=== PATIENT | female | born 1995 | race Caucasian/White ===

== ENCOUNTER 2016-04-19 08:37 | Emergency (ER) | payer BC ==
[2016-04-19 08:53] VITALS: BP 116/20
--- NOTE | 2016-04-19 09:11 | UC ---
Throat Pain/Nasal Boy HPI - HPI Summary HPI Summary: NASAL CONGESTION / COUGH X 7 DAYS + SORE THROAT , FEVER, CHILLS - History of Current Complaint Chief Complaint: UCRespiratory Stated Complaint: THROAT,COUGH,FEVER Time Seen by Provider: 04/19/16 08:50 Hx Obtained From: Patient Hx Last Menstrual Period: 04/01/16 Onset/Duration: Gradual Onset, Lasting Days - 7, Still Present Severity: Moderate Cough: Nonproductive Associated Signs & Symptoms: Positive: Nasal Discharge, Fever. Negative: Sinus Discomfort, Rash - Allergies/Home Medications Allergies/Adverse Reactions: Allergies Allergy/AdvReac Type Severity Reaction Status Date / Time Sulfa Antibiotics Allergy Hives Verified 04/19/16 08:47 Home Medications: Home Medications NK [No Home Medications Reported] 04/19/16 [History Confirmed 04/19/16] PMH/Surg Hx/FS Hx/Imm Hx Previously Healthy: Yes - Surgical History Surgical History: None - Family History Known Family History: Negative: Diabetes - Social History Alcohol Use: None Substance Use Type: None Smoking Status (MU): Never Smoked Tobacco Review of Systems Constitutional: Fever, Chills Skin: Negative Eyes: Negative ENT: Sore Throat, Nasal Discharge Respiratory: Cough Cardiovascular: Negative Gastrointestinal: Negative Genitourinary: Negative All Other Systems Reviewed And Are Negative: Yes Physical Exam Triage Information Reviewed: Yes Appearance: Well-Appearing, No Pain Distress, Well-Nourished Vital Signs: Initial Vital Signs Temp 98.5 F 04/19/16 08:48 Pulse 90 04/19/16 08:48 Resp 16 04/19/16 08:48 BP 116/20 04/19/16 08:48 Pulse Ox 98 04/19/16 08:48 Vital Signs Reviewed: Yes Eye Exam: Normal Eyes: Positive: Conjunctiva Clear ENT: Positive: Normal ENT inspection, Hearing grossly normal, Pharyngeal erythema, Nasal congestion, Nasal drainage Neck: Positive: Supple, Nontender, No Lymphadenopathy Respiratory: Positive: Chest non-tender, Lungs clear, Normal breath sounds Cardiovascular: Positive: RRR, No Murmur, Pulses Normal Abdominal Exam: Normal Skin Exam: Normal Throat Pain/Nasal Course/Dx - Differential Dx/Diagnosis Provider Diagnoses: influenza Discharge - Discharge Plan Condition: Stable Disposition: HOME Patient Education Materials: Influenza (ED) Referrals: Non Staff,Doctor [Primary Care Provider] - If Needed
== END 2016-04-19 09:43 | disposition home or self-care (01) ==
LOC: UCCORT 08:37
DX: J11.1 Influenza due to unidentified influenza virus with other respiratory manifestations (principal); Z88.2 Allergy status to sulfonamides
CPT/HCPCS: 87502; 87651; 99211; G0463